=== PATIENT | female | born 1965 | race Caucasian/White ===

== ENCOUNTER 2017-11-16 15:01 | Emergency (ER) | payer MEDICARE, MEDICAID ==
--- NOTE | 2017-11-16 16:13 | EDM.PDOC ---
ED HPI GENERAL MEDICAL PROBLEM - General Chief Complaint: Lower Extremity Injury/Pain Stated Complaint: bilateral knee pain Time Seen by Provider: 11/16/17 15:07 Source of Information: Reports: Patient, Long-Term Records, RN, RN Notes Reviewed History Limitations: Reports: No Limitations - History of Present Illness INITIAL COMMENTS - FREE TEXT/NARRATIVE: Patient is brought to the ED at [facility] after she sustained bilateral knee injuries from falling. Patient has a long standing history of falls. Patient's baseline she is able to ambulate without assistance. Over the past week, patient has been refusing to walk and will only use a wheelchair. [place] staff has to use a standing chair lift on the patient as she refuses to walk. No previous history of knee problems. No previous knee surgeries. Patient denies any back or neck pain. Bilateral Knee Pain Score (Numeric/FACES): 7 - Related Data Allergies Allergy/AdvReac Type Severity Reaction Status Date / Time carbamazepine [From Tegretol] Allergy Cannot Verified 11/16/17 16:10 Remember divalproex sodium Allergy Cannot Verified 11/16/17 16:10 [From Depakote] Remember ethinyl estradiol Allergy Cannot Verified 11/16/17 16:10 [From Demulen (28)] Remember ethynodiol Allergy Cannot Verified 11/16/17 16:10 [From Demulen (28)] Remember Fish Containing Products Allergy Cannot Verified 11/16/17 16:10 Remember haloperidol [From Haldol] Allergy Cannot Verified 11/16/17 16:10 Remember latex Allergy Cannot Verified 11/16/17 16:10 Remember Penicillins Allergy Cannot Verified 11/16/17 16:10 Remember thiothixene [From Navane] Allergy Cannot Verified 11/16/17 16:10 Remember levora Allergy Cannot Uncoded 11/16/17 16:10 Remember Home Meds: Home Meds Acetaminophen [Tylenol] 650 mg PO Q4H PRN 11/16/17 [History] Bisacodyl [Dulcolax] 5 mg PO ASDIRECTED PRN 11/16/17 [History] Cholecalciferol (Vitamin D3) [Vitamin D3] 400 unit PO DAILY 11/16/17 [History] Dextran 70/Hypromellose [Artificial Tears] 15 ml OP TID 11/16/17 [History] Docusate Sodium [Colace] 200 mg PO DAILY 11/16/17 [History] Furosemide [Lasix] 40 mg PO BID 11/16/17 [History] Glycopyrrolate [Robinul] 1 mg PO TID 11/16/17 [History] LORazepam [Ativan] 0.5 mg PO QID 11/16/17 [History] Lactulose 30 ml PO DAILY 11/16/17 [History] Linaclotide [Linzess] 145 mcg PO DAILY 11/16/17 [History] [place] Carbonate [[place] Carbonate ER] 900 mg PO DAILY 11/16/17 [History] Mag Hydrox/Al Hydrox/Simeth [Rulox] 30 ml PO QID PRN 11/16/17 [History] Magnesium Hydroxide [Milk of Magnesia] 30 ml PO DAILY 11/16/17 [History] Multivitamin [Multivitamins] 1 each PO DAILY 11/16/17 [History] Naproxen Sodium [Aleve] 220 mg PO BID 11/16/17 [History] [place]-3S/DHA/Epa/Fish Oil [[place]-3 Fish Oil 1,000 mg Sfgl] 1 each PO TID [History] Petrolatum,White/Lanolin [Vitamin A & D Ointment] 113 gm TP DAILY PRN 11/16/17 [ History] Polyethylene Glycol 3350 [MiraLAX] 17 gm PO DAILY 11/16/17 [History] Potassium Chloride 20 meq PO BID 11/16/17 [History] Warfarin Sodium [Coumadin] 10 mg PO DAILY 11/16/17 [History] Warfarin [Coumadin] 5 mg PO DAILY 11/16/17 [History] cloZAPine [Clozaril] 600 mg PO DAILY 11/16/17 [History] guaiFENesin/Dextromethorphan [Tussin Dm Cough Syrup] 10 ml PO Q4H PRN 11/16/17 [ History] Review of Systems - Review of Systems Review Of Systems: See Below Constitutional: Denies: Chills, Fever, Weakness Respiratory: Denies: Shortness of Breath, Cough Cardiovascular: Denies: Chest Pain, Palpitations Musculoskeletal: Reports: Joint Pain, Joint Swelling Skin: Reports: No Symptoms, Bruising (right knee) Neurological: Reports: No Symptoms. Denies: Numbness, Paresthesia, Tingling ED EXAM, GENERAL - Physical Exam Exam: See Below Exam Limited By: No Limitations General Appearance: Alert, No Apparent Distress Head: Atraumatic, Normocephalic Neck: Supple Respiratory/Chest: No Respiratory Distress, Lungs Clear, Normal Breath Sounds Cardiovascular: Normal Peripheral Pulses, Regular Rate, Rhythm Back Exam: Normal Inspection Extremities: Normal Capillary Refill, Pedal Edema (chronic), Joint Swelling ( right knee a little swollen when compared to the left), Limited Range of Motion (due to pain). No: Increased Warmth Neurological: Alert, Disoriented (baseline) Skin Exam: Warm, Dry, Intact, Normal Color Course - Vital Signs Last Recorded V/S: Last Vital Signs Temp 36.5 C 11/16/17 15:10 Pulse 93 11/16/17 15:10 Resp 18 11/16/17 15:10 BP 103/59 L 11/16/17 15:10 Pulse Ox 99 11/16/17 15:10 - Orders/Labs/Meds Orders: Active Orders 24 hr Category Date Time Status Knee 3V Lt [CR] Stat Exams 11/16/17 16:07 Taken Knee 3V Rt [CR] Stat Exams 11/16/17 16:07 Taken - Radiology Interpretation Free Text/Narrative:: Knee Right, 3V: Nondisplaced proximal right fibular neck fracture; degenerative changes; subluxation of patella; MRI would be helpful Knee Left, 3V: Extensive degenerative changes; no obvious new fracture See scanned reports in EMR Departure - Departure Time of Disposition: 18:57 Disposition: DC/Tfer to [facility] 03 Condition: Fair Clinical Impression: Closed fibular fracture Qualifiers: Encounter type: initial encounter Fibula location: proximal Fracture morphology : unspecified fracture morphology Laterality: right Qualified Code(s): S82.831A - Other fracture of upper and lower end of right fibula, initial encounter for closed fracture - Discharge Information *PRESCRIPTION DRUG MONITORING PROGRAM REVIEWED*: Not Applicable *COPY OF PRESCRIPTION DRUG MONITORING REPORT IN PATIENT AVEL: Not Applicable Instructions: Tibial and Fibular Fractures Referrals: Juany Parks DO [Physician] - Forms: ED Department Discharge Additional Instructions: 1. Stay well hydrated and rest 2. Weight baring as tolerated 3. No surgical intervention warrant 4. Follow up with PCP as symptoms warrant ED Communication - ED Communication Date/Time Date: 11/16/17 Time Called: 18:39 - Discussed Case With (1) Discussed Case With (1): Outpatient Provider (Dr. Yeyo Dykes, Ortho) - Problem List Review Problem List Initiated/Reviewed/Updated: Yes - My Orders Last 24 Hours: My Active Orders 11/16/17 16:07 Knee 3V Lt [CR] Stat Knee 3V Rt [CR] Stat - Assessment/Plan Last 24 Hours: My Active Orders 11/16/17 16:07 Knee 3V Lt [CR] Stat Knee 3V Rt [CR] Stat Assessment:: Nondisplaced proximal right fibular neck fracture Plan: Case discussed with Dr. Yeyo Dykes, Ortho. Recommend WBAT. No surgical intervention warranted. Follow up as needed.
== END 2017-11-16 19:11 ==
LOC: VM.ED 15:01
DX: S82.831A Other fracture of upper and lower end of right fibula, initial encounter for closed fracture (principal); Z79.899 Other long term (current) drug therapy; Z88.8 Allergy status to other drugs, medicaments and biological substances; Z91.040 Latex allergy status; Z88.0 Allergy status to penicillin; Z79.01 Long term (current) use of anticoagulants; W19.XXXA Unspecified fall, initial encounter; Z91.81 History of falling; Z99.3 Dependence on wheelchair
CPT/HCPCS: 73562-LT; 73562-RT; 99283

== ENCOUNTER 2017-12-23 15:36 | Emergency (ER) | payer MEDICARE, MEDICAID ==
--- NOTE | 2017-12-23 15:55 | EDM.PDOC ---
ED HPI GENERAL MEDICAL PROBLEM - General Chief Complaint: Cardiovascular Problem Stated Complaint: Tachy; BP issues Time Seen by Provider: 12/23/17 15:43 Source of Information: Reports: EMS Notes Reviewed, Penitentiary Records, RN, RN Notes Reviewed History Limitations: Reports: No Limitations - History of Present Illness INITIAL COMMENTS - FREE TEXT/NARRATIVE: Patient is brought to the ED at [facility] via EMS for concerns about blood pressure and heart rate. [place] state state they were unable to get a blood pressure and measured the patients heart rate in the 120's-140's. The chest pain or shortness of breath. No focal neurological problems. Patient recently had surgery for SBO. penitentiary staff state they were unable to auscultate bowel sounds. Patient does not have any abdominal complaints. Onset: Today - Related Data Allergies Allergy/AdvReac Type Severity Reaction Status Date / Time carbamazepine [From Tegretol] Allergy Cannot Verified 12/23/17 16:07 Remember divalproex sodium Allergy Cannot Verified 12/23/17 16:07 [From Depakote] Remember ethinyl estradiol Allergy Cannot Verified 12/23/17 16:07 [From Demulen (28)] Remember ethynodiol Allergy Cannot Verified 12/23/17 16:07 [From Demulen (28)] Remember Fish Containing Products Allergy Cannot Verified 12/23/17 16:07 Remember haloperidol [From Haldol] Allergy Cannot Verified 12/23/17 16:07 Remember latex Allergy Cannot Verified 12/23/17 16:07 Remember levonorgestrel Allergy Cannot Verified 12/23/17 16:07 Remember Penicillins Allergy Cannot Verified 12/23/17 16:07 Remember thiothixene [From Navane] Allergy Cannot Verified 12/23/17 16:07 Remember valproic acid Allergy Other Verified 12/07/17 23:01 Home Meds: Home Meds Acetaminophen [Tylenol] 650 mg PO Q4H PRN 11/16/17 [History] Bisacodyl [Dulcolax] 5 mg PO Q3D PRN 11/16/17 [History] Cholecalciferol (Vitamin D3) [Vitamin D3] 400 unit PO DAILY 11/16/17 [History] Dextran 70/Hypromellose [Artificial Tears] 1 drop EYEBOTH TID 11/16/17 [History] Docusate Sodium [Colace] 200 mg PO DAILY 11/16/17 [History] Furosemide [Lasix] 40 mg PO DAILY 11/16/17 [History] Glycopyrrolate [Robinul] 1 mg PO TID 11/16/17 [History] LORazepam [Ativan] 0.5 mg PO Q6H PRN 11/16/17 [History] Lactulose 30 ml PO DAILY 11/16/17 [History] Linaclotide [Linzess] 145 mcg PO DAILY 11/16/17 [History] [place] Carbonate [[place] Carbonate ER] 900 mg PO DAILY 11/16/17 [History] Mag Hydrox/Al Hydrox/Simeth [Rulox] 30 ml PO QID PRN 11/16/17 [History] Magnesium Hydroxide [Milk of Magnesia] 30 ml PO DAILY PRN 11/16/17 [History] Multivitamin [Multivitamins] 1 cap PO DAILY 11/16/17 [History] Naproxen Sodium [Aleve] 220 mg PO BID PRN 11/16/17 [History] [place]-3S/DHA/Epa/Fish Oil [[place]-3 Fish Oil 1,000 mg Sfgl] 1 cap PO TID [History] Petrolatum,White/Lanolin [Vitamin A & D Ointment] 1 applic TOP DAILY PRN [History] Polyethylene Glycol 3350 [MiraLAX] 17 gm PO DAILY 11/16/17 [History] Potassium Chloride 20 meq PO BID 11/16/17 [History] Warfarin Sodium [Coumadin] 10 mg PO SUTUTHSA@1700 11/16/17 [History] Warfarin [Coumadin] 5 mg PO MOWEFR@1700 11/16/17 [History] cloZAPine [Clozaril] 600 mg PO DAILY 11/16/17 [History] guaiFENesin/Dextromethorphan [Tussin Dm Cough Syrup] 10 ml PO Q4H PRN 11/16/17 [ History] Acetaminophen 650 mg PO TID 12/08/17 [History] Bisacodyl [Biscolax] 1 supp RECTAL ASDIRECTED PRN 12/08/17 [History] Dimeth/Gly/Oat/Petrolat/Water [Lubriderm Skin Nourishing Lotion] 1 applic TOP BID 12/08/17 [History] Ondansetron HCl [Zofran] 4 mg PO Q4H PRN 12/08/17 [History] Enoxaparin Sodium 80 mg SQ BID 12/23/17 [History] Famotidine 20 mg PO BID 12/23/17 [History] Past Medical History Cardiovascular History: Reports: High Cholesterol Respiratory History: Reports: Asthma, PE Gastrointestinal History: Reports: Chronic Constipation, GERD Musculoskeletal History: Reports: Other (See Below) Other Musculoskeletal History: Generalized Muscle Weakness, Fracture of Shaft of Right Fibula Psychiatric History: Reports: Anxiety, Bipolar, Depression, OCD, Schizophrenia, Other (See Below) Other Psychiatric History: Personality Disorder, Dysthmic Disorder Dermatologic History: Reports: Seborrheic Dermatitis, Other (See Below) Other Dermatologic History: Melanin Hyperpigmentation, Melanocytic Nevi Social & Family History - Caffeine Use Caffeine Use: Reports: None ED ROS GENERAL - Review of Systems Review Of Systems: See Below Constitutional: Denies: Fever, Chills Respiratory: Denies: Shortness of Breath, Cough Cardiovascular: Reports: Blood Pressure Problem. Denies: Chest Pain, Palpitations GI/Abdominal: Denies: Abdominal Pain, Nausea, Vomiting Skin: Reports: No Symptoms Neurological: Reports: No Symptoms ED EXAM, GENERAL - Physical Exam Exam: See Below Exam Limited By: No Limitations General Appearance: Alert, No Apparent Distress Respiratory/Chest: No Respiratory Distress, Lungs Clear, Normal Breath Sounds Cardiovascular: Normal Peripheral Pulses, Tachycardia Peripheral Pulses: 2+: Radial (L), Radial (R) GI/Abdominal: Soft, Tender (around incision site), Abnormal Bowel Sounds ( Hypoactive) Neurological: Alert Skin Exam: Warm, Dry, Intact, Normal Color EKG INTERPRETATION EKG Date: 12/23/17 Time: 15:45 Rhythm: NSR Rate (Beats/Min): 114 [place]: Normal P-Wave: Present QRS: Normal ST-T: Normal QT: Normal MS/PQ Interval: 0.17 Comparison: No Change EKG Interpretation Comments: 1. Sinus Tachycardia 2. Possible LAE 3. Nonspecific ST & T wave abnormality Course - Vital Signs Last Recorded V/S: Last Vital Signs Temp 37.1 C 12/23/17 15:36 Pulse 110 H 12/23/17 16:35 Resp 18 12/23/17 16:35 BP 122/65 12/23/17 16:35 Pulse Ox 97 12/23/17 16:35 - Orders/Labs/Meds Orders: Active Orders 24 hr Category Date Time Status EKG 12 Lead [EKG Documentation Completion] [RC] STAT Care 12/23/17 15:44 Active Insert Graf Catheter [Insert Urinary Catheter] [OM.PC] Care 12/23/17 17:40 Ordered Stat Urinary Catheter Assessment [RC] ASDIRECTED Care 12/23/17 17:41 Ordered Abdomen Pelvis w Cont [CT] Stat Exams 12/23/17 15:58 Taken Sodium Chloride 0.9% [Saline Flush] Med 12/23/17 15:56 Active 10 ml FLUSH ASDIRECTED PRN Peripheral IV Insertion Adult [OM.PC] Routine Oth 12/23/17 15:56 Ordered Medication Orders Sodium Chloride (Saline Flush) 10 ml FLUSH ASDIRECTED PRN PRN Reason: Keep Vein Open Labs: Laboratory Tests 12/23/17 Range/Units 16:06 Sodium 138 (136-145) mmol/L Potassium 3.5 (3.5-5.1) mmol/L Chloride 103 (98-107) mmol/L Carbon Dioxide 30 (21-32) mmol/L Anion Gap 8.5 L (10-20) mmol/L BUN 8 (7-18) mg/dL Creatinine 0.8 (0.55-1.02) mg/dL Est Cr Clr Drug Dosing TNP Estimated GFR (MDRD) > 60 Glucose 127 H (74-106) mg/dL Calcium 10.3 H (8.5-10.1) mg/dL Magnesium 1.8 (1.8-2.4) mg/dL Meds: Medications Generic Name Dose Route Start Last Admin Trade Name Freq PRN Reason Stop Dose Admin Sodium Chloride 10 ml 12/23/17 15:56 Saline Flush FLUSH ASDIRECTED PRN Keep Vein Open Discontinued Medications Generic Name Dose Route Start Last Admin Trade Name Freq PRN Reason Stop Dose Admin Sodium Chloride 1,000 mls @ 999 mls/hr 12/23/17 15:57 12/23/17 16:29 Normal Saline IV 12/23/17 16:57 999 mls/hr ONETIME ONE Administration Iopamidol 100 ml 12/23/17 16:52 12/23/17 17:08 Isovue-300 (61%) IVPUSH 12/23/17 16:53 100 ml ONETIME ONE Administration Metoclopramide HCl 10 mg 12/23/17 15:57 12/23/17 16:33 Reglan IVPUSH 12/23/17 15:58 10 mg ONETIME ONE Administration Ondansetron HCl 4 mg 12/23/17 16:21 12/23/17 16:31 Zofran IVPUSH 12/23/17 16:22 4 mg ONETIME ONE Administration - Radiology Interpretation Free Text/Narrative:: CT Abd/Pelvis: Markedly distended urinary bladder, consistent with urinary retention; changes in the bowel most consistent with postoperative ileus. No evidence of obstruction or perforation at this time See scanned report in EMR CT Results Date: 12/23/17 CT Results Time: 17:25 Departure - Departure Time of Disposition: 17:48 Disposition: DC/Tfer to [place] [address] Reason for Transfer *Q: Other (no transfer indicated) Condition: Good Clinical Impression: Urinary retention Instructions: Acute Urinary Retention, Female Referrals: Juany Parks, [Primary Care Provider] - Forms: ED Department Discharge Additional Instructions: 1. Stay well hydrated and rest 2. No changes with any medications 3. No new orders 4. See Dr. Parks as symptoms warrant ED Communication - ED Communication Date/Time Date: 12/23/17 Time Called: 17:38 - Discussed Case With (1) Discussed Case With (1): Outpatient Provider Person/s Notified (1): Juany Parks - Conversation Summary Summary Comment: Discussed case with Dr. Parks. Orders updated. - Problem List Review Problem List Initiated/Reviewed/Updated: Yes - My Orders Last 24 Hours: My Active Orders 12/23/17 15:44 EKG 12 Lead [EKG Documentation Completion] [RC] STAT 12/23/17 15:56 Sodium Chloride 0.9% [Saline Flush] 10 ml FLUSH ASDIRECTED PRN Peripheral IV Insertion Adult [OM.PC] Routine 12/23/17 15:58 Abdomen Pelvis w Cont [CT] Stat 12/23/17 17:40 Insert Graf Catheter [Insert Urinary Catheter] [OM.PC] Stat 12/23/17 17:41 Urinary Catheter Assessment [RC] ASDIRECTED - Assessment/Plan Last 24 Hours: My Active Orders 12/23/17 15:44 EKG 12 Lead [EKG Documentation Completion] [RC] STAT 12/23/17 15:56 Sodium Chloride 0.9% [Saline Flush] 10 ml FLUSH ASDIRECTED PRN Peripheral IV Insertion Adult [OM.PC] Routine 12/23/17 15:58 Abdomen Pelvis w Cont [CT] Stat 12/23/17 17:40 Insert Graf Catheter [Insert Urinary Catheter] [OM.PC] Stat 12/23/17 17:41 Urinary Catheter Assessment [RC] ASDIRECTED Assessment:: Urinary Retention Plan: Case discussed with Dr. Parks. Will straight cath patient for urinary retention. This is an isolated episode so catheter will not remain in place. Patient will be sent back to [place] without any changes to medications or treatments.
[2017-12-23] MEDS ORDERED: Sodium Chloride 0.9% 10 ML Syringe FLUSH PRN (15:56)
[2017-12-23] MEDS ORDERED: Metoclopramide 10 MG/2 ML SDV IVPUSH ONE (15:57)
[2017-12-23] MEDS ORDERED: Sodium Chloride 0.9% 1,000 ML IV ONE (15:57)
[2017-12-23] MEDS ORDERED: Ondansetron 4 MG/2 ML SDV IVPUSH ONE (16:21)
[2017-12-23 16:28] LABS: ANION GAP 8.5 mmol/L (10-20); CHLORIDE,CL 103 mmol/L (98-107); SODIUM,NA 138 mmol/L (136-145)
[2017-12-23] MEDS ORDERED: Iopamidol 612 MG/ML 100 ML Bottle IVPUSH ONE (16:52)
== END 2017-12-23 18:48 ==
LOC: VM.ED 15:36
DX: R33.9 Retention of urine, unspecified (principal); Z88.8 Allergy status to other drugs, medicaments and biological substances; Z79.899 Other long term (current) drug therapy; Z91.040 Latex allergy status
CPT/HCPCS: 36415; 74177; 80048; 81002; 83735; 93005; 96361; 96374; 96375; 99285; J2405; J2765; J7030; Q9967

== ENCOUNTER 2018-11-11 07:53 | Emergency (ER) | payer MEDICARE, MEDICAID ==
[2018-11-11] MEDS ORDERED: Acetaminophen 650 MG Supp RECTAL ONE (08:32)
[2018-11-11] MEDS ORDERED: cefTRIAXone 1 GM Vial IVPUSH ONE (08:34)
--- NOTE | 2018-11-11 08:40 | EDM.PDOC ---
ED HPI GENERAL MEDICAL PROBLEM - General Chief Complaint: Abdominal Pain Stated Complaint: BOWEL OBSTRUCTION Time Seen by Provider: 11/11/18 08:20 Source of Information: Reports: Patient, EMS, Long Term Records History Limitations: Reports: No Limitations - History of Present Illness INITIAL COMMENTS - FREE TEXT/NARRATIVE: 53-year-old care home patient brought in the days secondary to nausea and abdominal pain and fever. Patient is alert and oriented to name and location follow some commands. States she is sick her stomach and her belly hurts as a generalized location of pain to the lower abdomen. Patient has a history of small bowel obstructions in the past. Location: Reports: Abdomen Quality: Reports: Other (Patient cannot quantify type of pain or amount of pain) Associated Symptoms: Reports: Nausea/Vomiting, Other (Cannot remember last bowel movement) Abdomen Pain Score (Numeric/FACES): 10 - Related Data Allergies Allergy/AdvReac Type Severity Reaction Status Date / Time carbamazepine [From Tegretol] Allergy Cannot Verified 11/11/18 09:14 Remember divalproex sodium Allergy Cannot Verified 11/11/18 09:14 [From Depakote] Remember ethinyl estradiol Allergy Cannot Verified 11/11/18 09:14 [From Demulen (28)] Remember ethynodiol Allergy Cannot Verified 11/11/18 09:14 [From Demulen (28)] Remember Fish Containing Products Allergy Cannot Verified 11/11/18 09:14 Remember haloperidol [From Haldol] Allergy Cannot Verified 11/11/18 09:14 Remember latex Allergy Cannot Verified 11/11/18 09:14 Remember levonorgestrel Allergy Cannot Verified 11/11/18 09:14 Remember Penicillins Allergy Cannot Verified 11/11/18 09:14 Remember thiothixene [From Navane] Allergy Cannot Verified 11/11/18 09:14 Remember valproic acid Allergy Other Verified 11/11/18 09:14 Home Meds: Home Meds Acetaminophen [Tylenol] 650 mg PO Q4H PRN 11/16/17 [History] Bisacodyl [Dulcolax] 5 mg PO Q3D PRN 11/16/17 [History] Cholecalciferol (Vitamin D3) [Vitamin D3] 400 unit PO DAILY 11/16/17 [History] Dextran 70/Hypromellose [Artificial Tears] 1 drop EYEBOTH TID PRN 11/16/17 [ History] Furosemide [Lasix] 40 mg PO DAILY 11/16/17 [History] LORazepam [Ativan] 0.5 mg PO QID 11/16/17 [History] [place] Carbonate [[place] Carbonate ER] 900 mg PO DAILY 11/16/17 [History] Mag Hydrox/Al Hydrox/Simeth [Rulox] 30 ml PO QID PRN 11/16/17 [History] Magnesium Hydroxide [Milk of Magnesia] 30 ml PO DAILY PRN 11/16/17 [History] Multivitamin [Multivitamins] 1 cap PO DAILY 11/16/17 [History] [place]-3S/DHA/Epa/Fish Oil [[place]-3 Fish Oil 1,000 mg Sfgl] 1 cap PO TID [History] Petrolatum,White/Lanolin [Vitamin A & D Ointment] 1 applic TOP DAILY PRN [History] Polyethylene Glycol 3350 [MiraLAX] 17 gm PO DAILY 11/16/17 [History] Potassium Chloride 20 meq PO DAILY 11/16/17 [History] Warfarin Sodium [Coumadin] 10 mg PO SUTUWETHFRSA 11/16/17 [History] Warfarin [Coumadin] 7.5 mg PO MO 11/16/17 [History] cloZAPine [Clozaril] 600 mg PO DAILY 11/16/17 [History] guaiFENesin/Dextromethorphan [Tussin Dm Cough Syrup] 10 ml PO Q4H PRN 11/16/17 [ History] Bisacodyl [Biscolax] 1 supp RECTAL ASDIRECTED PRN 12/08/17 [History] Dimeth/Gly/Oat/Petrolat/Water [Lubriderm Skin Nourishing Lotion] 1 applic TOP BID 12/08/17 [History] Ondansetron HCl [Zofran] 4 mg PO Q4H PRN 12/08/17 [History] Famotidine 20 mg PO BID 12/23/17 [History] Acetaminophen [Tylenol] 650 mg PO TID 11/11/18 [History] Levothyroxine [Synthroid] 50 mcg PO ACBREAKFAST 11/11/18 [History] Lurasidone HCl [Latuda] 80 mg PO DAILY 11/11/18 [History] Past Medical History Cardiovascular History: Reports: High Cholesterol Respiratory History: Reports: Asthma, PE Gastrointestinal History: Reports: Chronic Constipation, GERD Musculoskeletal History: Reports: Other (See Below) Other Musculoskeletal History: Generalized Muscle Weakness, Fracture of Shaft of Right Fibula Psychiatric History: Reports: Anxiety, Bipolar, Depression, OCD, Schizophrenia, Other (See Below) Other Psychiatric History: Personality Disorder, Dysthmic Disorder Dermatologic History: Reports: Seborrheic Dermatitis, Other (See Below) Other Dermatologic History: Melanin Hyperpigmentation, Melanocytic Nevi Social & Family History - Caffeine Use Caffeine Use: Reports: None ED ROS GENERAL - Review of Systems Review Of Systems: Unable To Obtain (Limited history of present illness from patient) Constitutional: Reports: Fever, Chills, Other (Patient denies fever chills. Positive for documented fever all care home chart) HEENT: Reports: No Symptoms Respiratory: Denies: Shortness of Breath, Cough Cardiovascular: Denies: Chest Pain, Blood Pressure Problem GI/Abdominal: Reports: Abdominal Pain, Nausea, Vomiting : Reports: No Symptoms Musculoskeletal: Reports: No Symptoms Skin: Reports: No Symptoms Neurological: Reports: Other (Patient at baseline is pleasantly confused) Psychiatric: Reports: No Symptoms Hematologic/Lymphatic: Reports: No Symptoms Immunologic: Reports: No Symptoms ED EXAM, GI/ABD - Physical Exam Exam: See Below Exam Limited By: Other General Appearance: Alert, No Apparent Distress, Other (Patient is verbal answer some questions such as name and location but does not know date or time) Eyes: Bilateral: Normal Appearance, EOMI (Pupils equal round reactive light accommodation) Ears: Normal External Exam, Normal Canal Nose: Normal Inspection, Normal Mucosa Throat/Mouth: Normal Inspection, Normal Lips, Normal Teeth, Normal Gums, Normal Oropharynx, Normal Voice, No Airway Compromise, Other (Moist mucous membranes) Head: Atraumatic, Other Neck: Normal Inspection, Supple, Non-Tender, Full Range of Motion, Other (No nuchal rigidity noted) Respiratory/Chest: No Respiratory Distress, Lungs Clear, Normal Breath Sounds, No Accessory Muscle Use, Chest Non-Tender Cardiovascular: Normal Peripheral Pulses, Regular Rate, Rhythm (Noted tachycardia 110 bilateral +1 pedal edema), No JVD. No: No Edema GI/Abdominal Exam: Soft, No Organomegaly (Abdomen has mild tenderness to palpation diffusely across lower quadrants no noted grimace the patient states it hurts cannot quantify pain not able to appreciate any bowel sounds secondary to patient's obesity cannot disdain if it is distended abdomen there are no peritoneal signs). No: Normal Bowel Sounds, Non-Tender, Guarding, Rebound, Tender Back Exam: Full Range of Motion Extremities: Normal Inspection, Normal Range of Motion, Non-Tender. No: No Pedal Edema Neurological: Alert, CN II-XII Intact (Cranial nerves II through XII are grossly intact) Psychiatric: Normal Affect, Normal Mood Skin Exam: Warm, Dry, Intact, Normal Color Course - Vital Signs Text/Narrative:: Secondary to fever and tachycardia subsequent protocol will be started 1 g Rocephin IV 650 Tylenol rectal 8 mg Zofran flatplate and upright abdominal series and blood work Chest x-ray no acute findings CT abdomen and pelvis reveals a 6 mm obstructing stone within the proximal third of the left ureter resulting in mild left hydronephrosis Spoke with Dr. MARTE at [facility] in the ER he is willing to accept transfer for further workup and diagnosis and treatment he is okay with treatment that has been done here so far patient is stable for transfer Last Recorded V/S: Last Vital Signs Temp 37.4 C 11/11/18 10:15 Pulse 99 11/11/18 10:15 Resp 18 11/11/18 10:15 BP 112/91 H 11/11/18 10:15 Pulse Ox 97 11/11/18 10:15 - Orders/Labs/Meds Orders: Active Orders 24 hr Category Date Time Status EKG Documentation Completion [RC] STAT Care 11/11/18 08:32 Active CULTURE BLOOD [BC] Stat Lab 11/11/18 08:35 Received CULTURE BLOOD [BC] Stat Lab 11/11/18 08:48 Received Sodium Chloride 0.9% [Normal Saline] 1,000 ml Med 11/11/18 09:00 Active IV ASDIRECTED Blood Culture x2 Reflex Set [OM.PC] Stat Oth 11/11/18 08:32 Ordered Medication Orders Sodium Chloride (Normal Saline) 1,000 mls @ 100 mls/hr IV ASDIRECTED MELISSA Last Admin: 11/11/18 08:35 Dose: 100 mls/hr Labs: Laboratory Tests 11/11/18 11/11/18 11/11/18 Range/Units 08:48 08:48 08:48 WBC 8.9 (4.0-10.0) x10^3/uL RBC 4.80 (4.00-5.50) x10^6/uL Hgb 13.5 D (12.0-16.0) g/dL Hct 41.5 (33.0-47.0) % MCV 86.5 (78.0-93.0) fL MCH 28.1 (26.0-32.0) pg MCHC 32.5 (32.0-36.0) g/dL RDW Coeff of Alan 14.5 (10.0-15.0) % Plt Count 172 D (130-400) x10^3/uL Neut % (Auto) 94.3 H (50.0-80.0) % Lymph % (Auto) 4.0 L (25.0-50.0) % Rolette % (Auto) 1.5 L (2.0-11.0) % Eos % (Auto) 0.1 (0.0-4.0) % Baso % (Auto) 0.1 L (0.2-1.2) % Sodium 140 (136-145) mmol/L Potassium 3.5 (3.5-5.1) mmol/L Chloride 102 (98-107) mmol/L Carbon Dioxide 27 (21-32) mmol/L Anion Gap 14.5 (10-20) mmol/L BUN 19 H (7-18) mg/dL Creatinine 1.6 H (0.55-1.02) mg/dL Est Cr Clr Drug Dosing TNP Estimated GFR (MDRD) 34 Glucose 108 H (74-106) mg/dL Lactic Acid 3.4 H* (0.4-2.0) mmol/L Calcium 9.5 (8.5-10.1) mg/dL Urine Color (YELLOW) Urine Appearance (CLEAR) Urine pH (5.0-8.0) Ur Specific Trail Urine Protein (NEGATIVE) mg/dL Urine Glucose (UA) (NEGATIVE) mg/dL Urine Ketones (NEGATIVE) mg/dL Urine Occult Blood (NEGATIVE) Urine Nitrite (NEGATIVE) Urine Bilirubin (NEGATIVE) Urine Urobilinogen (0.2) EU/dL Ur Leukocyte Esterase (NEGATIVE) Urine RBC (NOT SEEN) /HPF Urine WBC (NOT SEEN) /HPF Ur Renal Epithelial Cell (NEGATIVE) /HPF Amorphous Sediment Urine Bacteria (NEGATIVE) /HPF Granular Casts (NEGATIVE) /HPF Urine Mucus (NEGATIVE) /LPF 11/11/18 Range/Units 08:55 WBC (4.0-10.0) x10^3/uL RBC (4.00-5.50) x10^6/uL Hgb (12.0-16.0) g/dL Hct (33.0-47.0) % MCV (78.0-93.0) fL MCH (26.0-32.0) pg MCHC (32.0-36.0) g/dL RDW Coeff of Alan (10.0-15.0) % Plt Count (130-400) x10^3/uL Neut % (Auto) (50.0-80.0) % Lymph % (Auto) (25.0-50.0) % Rolette % (Auto) (2.0-11.0) % Eos % (Auto) (0.0-4.0) % Baso % (Auto) (0.2-1.2) % Sodium (136-145) mmol/L Potassium (3.5-5.1) mmol/L Chloride (98-107) mmol/L Carbon Dioxide (21-32) mmol/L Anion Gap (10-20) mmol/L BUN (7-18) mg/dL Creatinine (0.55-1.02) mg/dL Est Cr Clr Drug Dosing Estimated GFR (MDRD) Glucose (74-106) mg/dL Lactic Acid (0.4-2.0) mmol/L Calcium (8.5-10.1) mg/dL Urine Color Dark yellow H (YELLOW) Urine Appearance Turbid H (CLEAR) Urine pH >=9.0 H (5.0-8.0) Ur Specific Trail 1.015 Urine Protein 30 H (NEGATIVE) mg/dL Urine Glucose (UA) Negative (NEGATIVE) mg/dL Urine Ketones Negative (NEGATIVE) mg/dL Urine Occult Blood Moderate H (NEGATIVE) Urine Nitrite Negative (NEGATIVE) Urine Bilirubin Negative (NEGATIVE) Urine Urobilinogen 0.2 (0.2) EU/dL Ur Leukocyte Esterase Moderate H (NEGATIVE) Urine RBC 5-10 H (NOT SEEN) /HPF Urine WBC 10-20 H (NOT SEEN) /HPF Ur Renal Epithelial Cell Occasional H (NEGATIVE) /HPF Amorphous Sediment Many Urine Bacteria Many H (NEGATIVE) /HPF Granular Casts Few H (NEGATIVE) /HPF Urine Mucus Few H (NEGATIVE) /LPF Meds: Medications Generic Name Dose Route Start Last Admin Trade Name Danilo PRN Reason Stop Dose Admin Sodium Chloride 1,000 mls @ 100 mls/hr 11/11/18 09:00 11/11/18 08:35 Normal Saline IV 100 mls/hr ASDIRECTED MELISSA Administration Discontinued Medications Generic Name Dose Route Start Last Admin Trade Name Danilo PRN Reason Stop Dose Admin Acetaminophen 650 mg 11/11/18 08:32 11/11/18 08:50 Tylenol RECTAL 11/11/18 08:33 650 mg NOW ONE Administration Ceftriaxone Sodium 1 gm 11/11/18 08:34 11/11/18 08:50 Rocephin IVPUSH 11/11/18 08:35 1 gm STAT ONE Administration Ondansetron HCl 8 mg/ Sodium 104 mls @ 400 mls/hr 11/11/18 08:43 11/11/18 08: 45 Chloride IV 11/11/18 08:58 400 mls/hr ONETIME ONE Administration Sodium Chloride 500 mls @ 100 mls/hr 11/11/18 08:45 Normal Saline IV ASDIRECTED MELISSA Iopamidol 100 ml 11/11/18 09:28 11/11/18 10:05 Isovue-300 (61%) IVPUSH 11/11/18 09:29 100 ml ONETIME ONE Administration Departure - Departure Time of Disposition: 11:20 Disposition: DC/Tfer to Acute Hospital 02 Condition: Good Clinical Impression: Abdominal pain, Sepsis, Renal calculus, left, Hydronephrosis due to obstruction of ureter - Discharge Information *PRESCRIPTION DRUG MONITORING PROGRAM REVIEWED*: No *COPY OF PRESCRIPTION DRUG MONITORING REPORT IN PATIENT AVEL: No Referrals: Juany Parks DO [Primary Care Provider] - Forms: ED Department Discharge - Problem List & Annotations (1) Abdominal pain SNOMED Code(s): 18046400 Code(s): R10.9 - UNSPECIFIED ABDOMINAL PAIN Status: Acute Current Visit: Yes (2) Hydronephrosis due to obstruction of ureter SNOMED Code(s): 517992040 Code(s): N13.2 - HYDRONEPHROSIS WITH RENAL AND URETERAL CALCULOUS OBSTRUCTION Status: Acute Current Visit: Yes (3) Renal calculus, left SNOMED Code(s): 11260258 Code(s): N20.0 - CALCULUS OF KIDNEY Status: Acute Current Visit: Yes (4) Sepsis SNOMED Code(s): 73059954 Code(s): A41.9 - SEPSIS, UNSPECIFIED ORGANISM Status: Acute Current Visit : Yes - My Orders Last 24 Hours: My Active Orders 11/11/18 08:32 EKG Documentation Completion [RC] STAT Blood Culture x2 Reflex Set [OM.PC] Stat 11/11/18 08:35 CULTURE BLOOD [BC] Stat 11/11/18 08:48 CULTURE BLOOD [BC] Stat 11/11/18 09:00 Sodium Chloride 0.9% [Normal Saline] 1,000 ml IV ASDIRECTED - Assessment/Plan Last 24 Hours: My Active Orders 11/11/18 08:32 EKG Documentation Completion [RC] STAT Blood Culture x2 Reflex Set [OM.PC] Stat 11/11/18 08:35 CULTURE BLOOD [BC] Stat 11/11/18 08:48 CULTURE BLOOD [BC] Stat 11/11/18 09:00 Sodium Chloride 0.9% [Normal Saline] 1,000 ml IV ASDIRECTED
[2018-11-11] MEDS ORDERED: Ondansetron 8 MG in Sodium Chloride 0.9% 100 ML IV ONE (08:43)
[2018-11-11] MEDS ORDERED: Sodium Chloride 0.9% 500 ML IV SCH (08:45)
[2018-11-11] MEDS ORDERED: Sodium Chloride 0.9% 1,000 ML IV SCH (09:00)
[2018-11-11 09:17] LABS: ANION GAP 14.5 mmol/L (10-20); CHLORIDE,CL 102 mmol/L (98-107); SODIUM,NA 140 mmol/L (136-145)
[2018-11-11] MEDS ORDERED: Iopamidol 612 MG/ML 100 ML Bottle IVPUSH ONE (09:28)
--- NOTE | 2018-11-11 09:39 | CR ---
[id number] RAD/RAD Chest PA or AP 1V EXAM: RAD Chest PA or AP 1V INDICATION: FEVER. COMPARISON: None available. DISCUSSION: Cardiomediastinal silhouette is normal in size and contour. No infiltrate, effusion, pneumothorax, or edema. Low lung volumes associated vascular crowding. IMPRESSION: No acute cardiopulmonary abnormality. Rafi Gray DO 11/11/18 0937 Thank you for allowing us to participate in the care of your patient.
--- NOTE | 2018-11-11 10:38 | CT ---
[id number] CT/CT Abdomen Pelvis W IV EXAM: CT Abdomen Pelvis W IV CLINICAL DATA: SMALL BOWEL OBSTRUCTION, HISTORY OF NAUSEA, VOMITING, COMPARISON STUDY: December 23, 2017. FINDINGS: Dependent atelectasis at the lung bases. Small sliding-type hiatal hernia. Liver, spleen, gallbladder and adrenal glands are unremarkable. Fatty atrophy of the pancreas There is a 6 mm calcified stone within the proximal 3rd of the left ureter resulting in mild left hydronephrosis. There is surrounding perinephric fat stranding. No other stones are identified. There is a Graf catheter in place. No bowel obstruction or inflammation. Moderate amount of retained stool within the colon. Bilateral adnexal cysts. Multiple prominent mesenteric lymph nodes. These are nonspecific. No free fluid or pneumoperitoneum. Scattered changes of spondylosis the spine. No fracture or osseous lesion. IMPRESSION: 6 mm obstructing stone within the proximal 3rd of the left ureter resulting in mild left hydronephrosis. Rafi Gray DO 11/11/18 1036 Thank you for allowing us to participate in the care of your patient.
== END 2018-11-11 12:10 | disposition short-term general hospital (02) ==
LOC: VM.ED 07:53
DX: A41.9 Sepsis, unspecified organism (principal); N13.2 Hydronephrosis with renal and ureteral calculous obstruction; E78.00 Pure hypercholesterolemia, unspecified; K21.9 Gastro-esophageal reflux disease without esophagitis; J45.909 Unspecified asthma, uncomplicated; F41.9 Anxiety disorder, unspecified; F32.9 Major depressive disorder, single episode, unspecified; F20.9 Schizophrenia, unspecified; Z88.8 Allergy status to other drugs, medicaments and biological substances; Z91.013 Allergy to seafood; Z91.040 Latex allergy status; Z88.0 Allergy status to penicillin; Z79.899 Other long term (current) drug therapy; Z79.01 Long term (current) use of anticoagulants
CPT/HCPCS: 36415; 51702; 71045; 74177; 80048; 81001; 83605; 85025; 87040; 87077; 87186; 93005; 96361; 96374; 96375; 99284; 99285; A9270; J0696; J2405; J7030; J7050; Q9967

== ENCOUNTER 2019-06-21 18:33 | Inpatient (IN) | payer MEDICARE, MEDICAID ==
[2019-06-21] MEDS ORDERED: Sodium Chloride 0.9% 1,000 ML IV ONE (18:40)
[2019-06-21] MEDS ORDERED: Metoclopramide 10 MG/2 ML SDV IVPUSH ONE (18:40)
--- NOTE | 2019-06-21 18:47 | EDM.PDOC ---
ED HPI GENERAL MEDICAL PROBLEM - General Chief Complaint: Gastrointestinal Problem Time Seen by Provider: 06/21/19 18:35 Source of Information: Reports: Patient, EMS History Limitations: Reports: No Limitations - History of Present Illness INITIAL COMMENTS - FREE TEXT/NARRATIVE: Pt. has had several episodes of diarrhea, vomiting, fever, and abdominal cramping today. She started getting sick today. She has had 1 loose stool and several episodes of vomiting. Staff at [facility] states that the patient had a fever and absent bowel sounds as well as significant discomfort to abdomen with palpation. On arrival of EMS, they report that the patient is no longer experiencing abdominal discomfort, nausea, or vomiting. She was afebrile on scene. Pt. denies any chest pain, shortness of breath, rashes, or headache. She states that she feels fine since vomiting and having the one loose stool. She is requesting a diet coke on arrival to ER. Onset: Today Location: Reports: Abdomen, Generalized - Related Data Allergies Allergy/AdvReac Type Severity Reaction Status Date / Time carbamazepine [From Tegretol] Allergy Cannot Verified 06/21/19 18:53 Remember divalproex sodium Allergy Cannot Verified 06/21/19 18:53 [From Depakote] Remember ethinyl estradiol Allergy Cannot Verified 06/21/19 18:53 [From Demulen (28)] Remember ethynodiol Allergy Cannot Verified 06/21/19 18:53 [From Demulen (28)] Remember Fish Containing Products Allergy Cannot Verified 06/21/19 18:53 Remember haloperidol [From Haldol] Allergy Cannot Verified 06/21/19 18:53 Remember latex Allergy Cannot Verified 06/21/19 18:53 Remember levonorgestrel Allergy Cannot Verified 06/21/19 18:53 Remember Penicillins Allergy Cannot Verified 06/21/19 18:53 Remember thiothixene [From Navane] Allergy Cannot Verified 06/21/19 18:53 Remember valproic acid Allergy Other Verified 06/21/19 18:53 levora Allergy Other Uncoded 06/21/19 20:34 Home Meds: Home Meds Acetaminophen [Tylenol] 650 mg PO Q4H PRN 11/16/17 [History] Cholecalciferol (Vitamin D3) [Vitamin D3] 400 unit PO DAILY 11/16/17 [History] Dextran 70/Hypromellose [Artificial Tears] 1 drop EYEBOTH TID PRN 11/16/17 [ History] Furosemide [Lasix] 40 mg PO DAILY 11/16/17 [History] [place] Carbonate [[place] Carbonate ER] 900 mg PO DAILY 11/16/17 [History] Mag Hydrox/Aluminum Hyd/Simeth [Rulox] 30 ml PO QID PRN 11/16/17 [History] Magnesium Hydroxide [Milk of Magnesia] 30 ml PO DAILY PRN 11/16/17 [History] Multivitamin [Multivitamins] 1 cap PO DAILY 11/16/17 [History] [place]-3S/DHA/Epa/Fish Oil [[place]-3 Fish Oil 1,000 mg Sfgl] 1 cap PO TID [History] Potassium Chloride 20 meq PO DAILY 11/16/17 [History] Warfarin Sodium [Coumadin] 10 mg PO SUTUWETHFRSA 11/16/17 [History] Warfarin [Coumadin] 7.5 mg PO MO 11/16/17 [History] bisacodyL [Dulcolax] 5 mg PO Q3D PRN 11/16/17 [History] cloZAPine [Clozaril] 600 mg PO DAILY 11/16/17 [History] polyethylene glycoL 3350 [MiraLAX] 17 gm PO DAILY 11/16/17 [History] Bisacodyl [Biscolax] 1 supp RECTAL ASDIRECTED PRN 12/08/17 [History] Dimeth/Gly/Oat/Petrolat/Water [Lubriderm Skin Nourishing Lotion] 1 applic TOP BID 12/08/17 [History] Acetaminophen [Tylenol] 650 mg PO TID 11/11/18 [History] Levothyroxine [Synthroid] 75 mcg PO ACBREAKFAST 11/11/18 [History] Lurasidone HCl [Latuda] 120 mg PO DAILY 11/11/18 [History] [place]/Min Oil/Christine/Wool Alcoh [Eucerin Creme] 0 gm TOP BID 06/21/19 [History] LORazepam [Ativan] 0.5 mg PO QID 06/21/19 [History] Oxybutynin Chloride [Oxybutynin Chloride ER] 10 mg PO DAILY 06/21/19 [History] Sennosides/Docusate Sodium [Senna Plus 8.6-50 mg Tablet] 2 tab PO DAILY PRN [History] Vits A and D/White Pet/Lanolin [A and D Ointment] 1 applic TOP DAILY 06/21/19 [ History] Past Medical History Cardiovascular History: Reports: High Cholesterol Respiratory History: Reports: Asthma, PE Gastrointestinal History: Reports: Chronic Constipation, GERD Musculoskeletal History: Reports: Other (See Below) Other Musculoskeletal History: Generalized Muscle Weakness, Fracture of Shaft of Right Fibula Psychiatric History: Reports: Anxiety, Bipolar, Depression, OCD, Schizophrenia, Other (See Below) Other Psychiatric History: Personality Disorder, Dysthmic Disorder Dermatologic History: Reports: Seborrheic Dermatitis, Other (See Below) Other Dermatologic History: Melanin Hyperpigmentation, Melanocytic Nevi Social & Family History - Caffeine Use Caffeine Use: Reports: None ED ROS GENERAL - Review of Systems Review Of Systems: See Below Constitutional: Reports: No Symptoms HEENT: Reports: No Symptoms Respiratory: Reports: No Symptoms Cardiovascular: Reports: No Symptoms Endocrine: Reports: No Symptoms GI/Abdominal: Reports: Abdominal Pain, Diarrhea, Nausea, Vomiting : Reports: No Symptoms Musculoskeletal: Reports: No Symptoms Skin: Reports: No Symptoms Neurological: Reports: No Symptoms Psychiatric: Reports: No Symptoms Hematologic/Lymphatic: Reports: No Symptoms Immunologic: Reports: No Symptoms ED EXAM, GENERAL - Physical Exam Exam: See Below Exam Limited By: No Limitations General Appearance: Alert, WD/WN, No Apparent Distress Throat/Mouth: Normal Inspection, Normal Lips, Normal Teeth, Normal Gums, Normal Oropharynx, Normal Voice, No Airway Compromise Head: Atraumatic, Normocephalic Neck: Normal Inspection, Supple, Non-Tender, Full Range of Motion Respiratory/Chest: No Respiratory Distress, Lungs Clear, Normal Breath Sounds, No Accessory Muscle Use, Chest Non-Tender Cardiovascular: Normal Peripheral Pulses, Regular Rate, Rhythm, No Edema, No Gallop, No JVD, No Murmur, No Rub Peripheral Pulses: 4+: Radial (L) GI/Abdominal: Normal Bowel Sounds, Soft, Non-Tender, No Mass, Other (distended, obese, no obvious discomfort for palpation\) (Female) Exam: Deferred Rectal (Female) Exam: Deferred Back Exam: Normal Inspection, Full Range of Motion Extremities: Normal Inspection, Normal Range of Motion, Non-Tender, No Pedal Edema, Normal Capillary Refill Neurological: Alert, Oriented, CN II-XII Intact, Normal Cognition, Normal Gait, Normal Reflexes, No Motor/Sensory Deficits Psychiatric: Normal Affect, Normal Mood Skin Exam: Warm, Dry, Intact, Normal Color, No Rash Lymphatic: No Adenopathy Course - Vital Signs Last Recorded V/S: Last Vital Signs Temp 36.8 C 06/21/19 21:23 Pulse 93 06/21/19 21:23 Resp 18 06/21/19 21:23 BP 116/62 06/21/19 21:23 Pulse Ox 99 06/21/19 21:23 - Orders/Labs/Meds Orders: Active Orders 24 hr Category Date Time Status Abdomen Pelvis w Cont [CT] Stat Exams 06/21/19 19:51 Taken CULTURE BLOOD [BC] Stat Lab 06/21/19 18:58 Received CULTURE BLOOD [BC] Stat Lab 06/21/19 19:05 Received Blood Culture x2 Reflex Set [OM.PC] Stat Oth 06/21/19 18:39 Ordered Labs: Laboratory Tests 06/21/19 06/21/19 06/21/19 Range/Units 18:58 18:58 18:58 WBC 9.0 (4.0-10.0) x10^3/uL RBC 4.96 (4.00-5.50) x10^6/uL Hgb 13.5 (12.0-16.0) g/dL Hct 42.5 (33.0-47.0) % MCV 85.7 (78.0-93.0) fL MCH 27.2 (26.0-32.0) pg MCHC 31.8 L (32.0-36.0) g/dL RDW Coeff of Alan 15.1 H (10.0-15.0) % Plt Count 244 (130-400) x10^3/uL Neut % (Auto) 75.3 (50.0-80.0) % Lymph % (Auto) 12.8 L (25.0-50.0) % [place] % (Auto) 10.1 (2.0-11.0) % Eos % (Auto) 1.7 (0.0-4.0) % Baso % (Auto) 0.1 L (0.2-1.2) % PT 22.6 H (10.0-12.8) SEC INR 2.0 (2.0-3.5) Sodium (136-145) mmol/L Potassium (3.5-5.1) mmol/L Chloride (98-107) mmol/L Carbon Dioxide (21-32) mmol/L Anion Gap (10-20) mmol/L BUN (7-18) mg/dL Creatinine (0.55-1.02) mg/dL Est Cr Clr Drug Dosing Estimated GFR (MDRD) Glucose (74-106) mg/dL Lactic Acid 2.3 H* (0.4-2.0) mmol/L Calcium (8.5-10.1) mg/dL Corrected Calcium (8.5-10.1) mg/dL Phosphorus (2.6-4.7) mg/dL Magnesium (1.8-2.4) mg/dL Total Bilirubin (0.2-1.0) mg/dL AST (15-37) U/L ALT (14-59) U/L Alkaline Phosphatase (46-116) U/L C-Reactive Protein (<=0.9) mg/dL Total Protein (6.4-8.2) g/dL Albumin (3.4-5.0) g/dL Globulin Albumin/Globulin Ratio Amylase (25-115) U/L Lipase (73-393) U/L Urine Color (YELLOW) Urine Appearance (CLEAR) Urine pH (5.0-8.0) Ur Specific Ber[place]old Urine Protein (NEGATIVE) mg/dL Urine Glucose (UA) (NEGATIVE) mg/dL Urine Ketones (NEGATIVE) mg/dL Urine Occult Blood (NEGATIVE) Urine Nitrite (NEGATIVE) Urine Bilirubin (NEGATIVE) Urine Urobilinogen (0.2) EU/dL Ur Leukocyte Esterase (NEGATIVE) Urine RBC (NOT SEEN) /HPF Urine WBC (NOT SEEN) /HPF Ur Squamous Epith Cells (NEGATIVE) /HPF Urine Bacteria (NEGATIVE) /HPF Urine Mucus (NEGATIVE) /LPF 06/21/19 06/21/19 06/21/19 Range/Units 18:58 18:58 19:43 WBC (4.0-10.0) x10^3/uL RBC (4.00-5.50) x10^6/uL Hgb (12.0-16.0) g/dL Hct (33.0-47.0) % MCV (78.0-93.0) fL MCH (26.0-32.0) pg MCHC (32.0-36.0) g/dL RDW Coeff of Alan (10.0-15.0) % Plt Count (130-400) x10^3/uL Neut % (Auto) (50.0-80.0) % Lymph % (Auto) (25.0-50.0) % [place] % (Auto) (2.0-11.0) % Eos % (Auto) (0.0-4.0) % Baso % (Auto) (0.2-1.2) % PT (10.0-12.8) SEC INR (2.0-3.5) Sodium 139 (136-145) mmol/L Potassium 3.6 (3.5-5.1) mmol/L Chloride 101 (98-107) mmol/L Carbon Dioxide 24 (21-32) mmol/L Anion Gap 17.6 (10-20) mmol/L BUN 9 (7-18) mg/dL Creatinine 0.9 (0.55-1.02) mg/dL Est Cr Clr Drug Dosing TNP Estimated GFR (MDRD) > 60 Glucose 134 H (74-106) mg/dL Lactic Acid (0.4-2.0) mmol/L Calcium 8.7 (8.5-10.1) mg/dL Corrected Calcium 9.26 (8.5-10.1) mg/dL Phosphorus 3.4 (2.6-4.7) mg/dL Magnesium 2.0 (1.8-2.4) mg/dL Total Bilirubin 0.4 (0.2-1.0) mg/dL AST 18 (15-37) U/L ALT 30 (14-59) U/L Alkaline Phosphatase 150 H (46-116) U/L C-Reactive Protein 7.0 H (<=0.9) mg/dL Total Protein 7.0 (6.4-8.2) g/dL Albumin 3.3 L (3.4-5.0) g/dL Globulin 3.7 Albumin/Globulin Ratio 0.89 Amylase 21 L (25-115) U/L Lipase 90 (73-393) U/L Urine Color Light yellow (YELLOW) Urine Appearance Slightly cloudy H (CLEAR) Urine pH 6.0 (5.0-8.0) Ur Specific Berthold <=1.005 Urine Protein Negative (NEGATIVE) mg/dL Urine Glucose (UA) Negative (NEGATIVE) mg/dL Urine Ketones Negative (NEGATIVE) mg/dL Urine Occult Blood Trace-intact H (NEGATIVE) Urine Nitrite Positive H (NEGATIVE) Urine Bilirubin Negative (NEGATIVE) Urine Urobilinogen 0.2 (0.2) EU/dL Ur Leukocyte Esterase Negative (NEGATIVE) Urine RBC 5-10 H (NOT SEEN) /HPF Urine WBC 0-5 (NOT SEEN) /HPF Ur Squamous Epith Cells Few H (NEGATIVE) /HPF Urine Bacteria Moderate H (NEGATIVE) /HPF Urine Mucus Occasional H (NEGATIVE) /LPF Meds: Medications Discontinued Medications Generic Name Dose Route Start Last Admin Trade Name Terryq PRN Reason Stop Dose Admin Ceftriaxone Sodium 2 gm 06/21/19 19:50 06/21/19 19:57 Rocephin IVPUSH 06/21/19 19:51 2 gm STAT ONE Administration Sodium Chloride 1,000 mls @ 1,000 mls/hr 06/21/19 18:40 06/21/19 18:48 Normal Saline IV 06/21/19 19:39 1,000 mls/hr .BOLUS ONE Administration Iopamidol 100 ml 06/21/19 20:01 06/21/19 20:24 Isovue-300 (61%) IVPUSH 06/21/19 20:02 100 ml ONETIME ONE Administration Metoclopramide HCl 5 mg 06/21/19 18:40 06/21/19 18:48 Reglan IVPUSH 06/21/19 18:41 5 mg ONETIME ONE Administration - Radiology Interpretation Free Text/Narrative:: high grade small bowel obstruction, no obvious ischemia. Departure - Departure Time of Disposition: 21:42 Disposition: DC/Tfer to Acute Hospital 02 Clinical Impression: UTI (urinary tract infection), Small bowel obstruction - Discharge Information Sepsis Event Note - Focused Exam Vital Signs: Vital Signs Temp Temp Pulse Resp BP BP Pulse Ox 06/21/19 21:23 36.8 C 93 18 116/62 99 06/21/19 20:25 37.1 C 97 20 116/65 100 06/21/19 19:50 115/76 06/21/19 18:33 37.6 C 96 18 112/72 99 Date Exam was Performed: 06/21/19 Time Exam was Performed: 21:40 - Problem List Review Problem List Initiated/Reviewed/Updated: Yes - My Orders Last 24 Hours: My Active Orders 06/21/19 18:39 Blood Culture x2 Reflex Set [OM.PC] Stat 06/21/19 18:58 CULTURE BLOOD [BC] Stat 06/21/19 19:05 CULTURE BLOOD [BC] Stat 06/21/19 19:51 Abdomen Pelvis w Cont [CT] Stat - Assessment/Plan Admission H&P: Please use this note as an admission H&P Last 24 Hours: My Active Orders 06/21/19 18:39 Blood Culture x2 Reflex Set [OM.PC] Stat 06/21/19 18:58 CULTURE BLOOD [BC] Stat 06/21/19 19:05 CULTURE BLOOD [BC] Stat 06/21/19 19:51 Abdomen Pelvis w Cont [CT] Stat Plan: Pt. will be admitted acutely. She is a code 1. She was given rocephin 2 gm IV in ER for her uti. Urine was cultured. Will continue normal saline at 150ml/hr after the first liter. Pt. will be followed in the AM by Mikie Onofre. Repeat CBC, lactic acid, and chemistry in the AM. She will be kept NPO tonight. IV reglan for nausea/vomiting and to improve peristalsis. Discussed findings with correction staff as well as Brandon Henry , patient's brother/legal guardian.
[2019-06-21 19:45] LABS: ANION GAP 17.6 mmol/L (10-20); CHLORIDE,CL 101 mmol/L (98-107); SODIUM,NA 139 mmol/L (136-145)
[2019-06-21] MEDS ORDERED: cefTRIAXone 2 GM Vial IVPUSH ONE (19:50)
[2019-06-21] MEDS ORDERED: Iopamidol 612 MG/ML 100 ML Bottle IVPUSH ONE (20:01)
[2019-06-21] MEDS ORDERED: Bisacodyl 10 MG Supp RECTAL PRN (21:59)
[2019-06-21] MEDS ORDERED: Warfarin 5 MG Tab PO SCH (22:00)
[2019-06-21] MEDS: Metoclopramide 10 MG/2 ML SDV IVPUSH SCH (22:30)
[2019-06-21] MEDS: LORazepam 0.5 MG Tab PO SCH (22:38)
[2019-06-22] MEDS: Sodium Chloride 0.9% 1,000 ML IV SCH ×4 (00:30→20:42)
[2019-06-22] MEDS: Metoclopramide 10 MG/2 ML SDV IVPUSH SCH ×4 (04:48→18:40)
[2019-06-22] MEDS ORDERED: Non-Formulary Medication 1 Each (Lurasidone Hcl [Latuda] 120 MG) PO SCH (08:00)
[2019-06-22] MEDS ORDERED: LORazepam 0.5 MG Tab PO SCH (08:00)
[2019-06-22 08:16] LABS: CHLORIDE,CL 109 mmol/L (98-107); SODIUM,NA 143 mmol/L (136-145)
[2019-06-22] MEDS: Levothyroxine 75 MCG Tab PO SCH (09:02)
[2019-06-22] MEDS: Furosemide 40 MG Tab PO SCH (09:02)
[2019-06-22] MEDS: Multivitamins with Iron/Calcium/Folic Acid/Minerals Tab PO SCH (09:02)
[2019-06-22] MEDS: LORazepam 0.5 MG Tab PO SCH ×4 (09:02→19:49)
[2019-06-22] MEDS: Lithium Carbonate 450 MG Tab.ER PO SCH (09:10)
[2019-06-22] MEDS ORDERED: Ondansetron 4 MG/2 ML SDV IVPUSH PRN (09:58)
[2019-06-22] MEDS ORDERED: Metoclopramide 10 MG/2 ML SDV IVPUSH ONE (10:00)
[2019-06-22] MEDS ORDERED: CLOZAPINE 200 MG PO SCH (10:45)
--- NOTE | 2019-06-22 11:34 | CT ---
[id number] CT/CT Abdomen Pelvis W IV EXAM: ABDOMEN AND PELVIS CT WITH CONTRAST INDICATION: Abdominal pain and elevated lactic acid. COMPARISON: November 11, 2018. DISCUSSION: There is dilation of the small bowel to about 40 mm with transition point within the mid to distal small bowel in the right lower abdomen (image 102 series 2) consistent with small bowel obstruction. There is a mildly prominent stool volume throughout the colon. No pneumatosis, free air free fluid. Fatty infiltration of the liver. Diastases recti. The mesenteric nodes are mildly prominent in size and number, but have minimally changed relative to the previous examination. The appendix is not identified. No free air free fluid. Interval passage of a left ureteral calculus. The gallbladder, spleen, pancreas, adrenal glands, and kidneys are normal in appearance. The osseous structures are unremarkable. IMPRESSION: 1. Mid to distal small bowel obstruction. Oren White MD 06/22/19 1134 Thank you for allowing us to participate in the care of your patient.
[2019-06-22] MEDS: Acetaminophen 325 MG Tab PO PRN ×2 (13:14→19:57)
--- NOTE | 2019-06-22 13:24 | PN ---
Progress Note for KEITH ALVARADO Date: 06/22/2019 Room #: VM.201 CHIEF COMPLAINT: 1. Abdominal pain. 2. Nausea and vomiting. SUBJECTIVE: A 53-year-old female patient is from the [facility], was admitted to the acute care floor last evening for abdominal pain, nausea, vomiting, which started earlier that day. According to the assisted records, the patient had a slight fever and was not able to keep anything down. The patient does have a history of GI problems in the past. The patient was worked up in the ER and was not found to be septic. However, the CT scan of the abdomen and pelvis showed a high-grade small bowel obstruction. Therefore, the patient was admitted to acute care. The patient is somewhat of a poor historian given her psychiatric background. Upon interview, the patient states that she is "feeling fine." The patient states that she does feel queasy. The patient is having lower abdominal pain bilaterally. The patient's last bowel movement was yesterday morning at the assisted. The patient states that she does feel hungry. The patient states she currently does not feel nauseated. PHYSICAL EXAMINATION: General Presentation: The patient is alert. Patient is cooperative. The patient does not appear to be in any acute distress. Respiratory: Lungs are clear to auscultation. Cardiac: Regular rate and rhythm, no murmur. Abdomen: Bowel sounds are significantly hypoactive, abdominal pain on palpation of the left lower and right lower quadrant, abdomen does not reveal any masses. Skin: Warm, dry, and intact. Neurological: The patient is alert. Patient is disoriented. LABORATORY STUDIES: 1. CBC, white blood cell count 8.3, hemoglobin 11.7, hematocrit 37.1, platelets are 232,000. 2. CMP: Sodium was 143, potassium 4.0, chloride 109, CO2 of 25, anion gap of 13.0, BUN is 10, creatinine 0.7, GFR is greater than 60. Calcium 8.0, total bilirubin 0.3, AST is 23, ALT is 33, alkaline phosphatase is 119, albumin is 5.5. MEDICATION: 1. Bisacodyl 10 mg NC as needed. 2. Clozapine 1 tablet p.o. at bedtime. 3. Furosemide 40 mg 1 tablet p.o. daily. 4. Levothyroxine 75 mcg 1 tablet p.o. daily. 5. [place] 900 mg 1 tablet p.o. daily. 6. Lorazepam 0.5 mg 1 tablet p.o. 4 times daily. 7. Latuda 1 tablet p.o. daily at bedtime. 8. Reglan 10 mg IV push every 6 hours. 9. Multivitamin 1 tablet p.o. daily. 10.Ondansetron 4 mg IV push every 8 hours as needed. 11.Coumadin 7.5 mg on Mondays. 12.Coumadin 10 mg on Monday, Monday, Monday, , Monday, Monday. ASSESSMENT: 1. High-grade small bowel obstruction. 2. Abdominal pain. 3. Nausea and vomiting. 4. Bipolar. 5. Depression. 6. Schizophrenia. 7. Obsessive-compulsive disorder. 8. High cholesterol. 9. Asthma. 10.History of pulmonary embolism. 11.Gastroesophageal reflux disease. 12.Constipation. PLAN: The patient will be on acute cares for now. The patient will have an NG placed to decompress the stomach. The patient will remain n.p.o. Continue with Reglan every 6 hours. Continue with Zofran every 8 hours as needed for nausea. The patient will continue on IV fluids for hydration. I will stop the Rocephin as I do not see a urinary tract infection and no other indicator for antibiotics. I will continue assisted medications the same without any changes. We will recheck laboratory work tomorrow morning. The patient is a full code 1. The patient will be transferred to a higher level of care should the need arise. This case was discussed with Dr. Alejandro Avila, general surgeon, [facility]. If the patient does not show improvement over the next day or so, she will be transferred to [place]. Note: This patient was seen and examined by me as an [facility] provider. TB: 06/22/2019 12:29:19 MODL: 06/22/2019 13:15:18 /[id number]
[2019-06-22] MEDS ORDERED: cefTRIAXone 1 GM Vial IVPUSH SCH (19:00)
[2019-06-22] MEDS: Benzocaine/Cetylpyridinium/Menthol Lozenge MUCMEM PRN (19:49)
[2019-06-22] MEDS: CLOZAPINE 100 MG PO SCH (19:51)
[2019-06-22] MEDS: CLOZAPINE 200 MG PO SCH (19:51)
[2019-06-22] MEDS: LURASIDONE 80 MG PO SCH (19:52)
[2019-06-22] MEDS: LURASIDONE 40 MG PO SCH (19:53)
[2019-06-22] MEDS ORDERED: Warfarin 5 MG Tab PO SCH (20:00)
[2019-06-22] MEDS ORDERED: CLOZAPINE PO SCH (22:00)
[2019-06-23] MEDS: Metoclopramide 10 MG/2 ML SDV IVPUSH SCH ×4 (01:56→18:04)
[2019-06-23] MEDS: Sodium Chloride 0.9% 1,000 ML IV SCH ×2 (03:13→09:15)
[2019-06-23] MEDS: Levothyroxine 75 MCG Tab PO SCH (06:51)
[2019-06-23] MEDS: Multivitamins with Iron/Calcium/Folic Acid/Minerals Tab PO SCH (07:53)
[2019-06-23] MEDS: Furosemide 40 MG Tab PO SCH (07:53)
[2019-06-23] MEDS: LORazepam 0.5 MG Tab PO SCH ×4 (07:53→19:36)
[2019-06-23 08:02] LABS: CHLORIDE,CL 113 mmol/L (98-107); SODIUM,NA 146 mmol/L (136-145)
[2019-06-23 08:03] LABS: ANION GAP 11.6 mmol/L (10-20)
[2019-06-23] MEDS: Acetaminophen 325 MG Tab PO PRN ×2 (08:04→16:42)
[2019-06-23] MEDS: Benzocaine/Cetylpyridinium/Menthol Lozenge MUCMEM PRN (08:05)
[2019-06-23] MEDS: Lithium Carbonate 450 MG Tab.ER PO SCH (08:05)
[2019-06-23] MEDS: Lactated Ringers 1,000 ML IV SCH ×2 (09:44→22:25)
[2019-06-23] MEDS: CLOZAPINE 100 MG PO SCH (19:37)
[2019-06-23] MEDS: CLOZAPINE 200 MG PO SCH (19:38)
[2019-06-23] MEDS: LURASIDONE 40 MG PO SCH (19:41)
[2019-06-23] MEDS: LURASIDONE 80 MG PO SCH (19:42)
--- NOTE | 2019-06-23 23:14 | PN ---
Progress Note for KEITH ALVARADO Date: 06/23/2019 Room #: VM.201 CHIEF COMPLAINT: 1. Abdominal pain. 2. Nausea and vomiting. SUBJECTIVE: The patient offers no specific complaints this morning. She continues to have an NG tube in place. The patient is asking to eat. The patient does not complain of any abdominal pain. The patient has not needed any medications for nausea or vomiting. The patient is incontinent of urine. The patient has not had a bowel movement since 06/21/2019. PHYSICAL EXAMINATION: General Presentation: The patient is alert. The patient is cooperative. Respiratory: Lungs are clear to auscultation. Cardiac: Regular rate and rhythm. No murmur. Abdomen: Soft, nontender. Bowel sounds active in the left upper, left lower, and right lower quadrants. Bowel sounds are absent in the right upper quadrant. Skin: Warm, dry, and intact. Neurological: The patient is alert. LABORATORY STUDIES: 1. CBC: White blood cell count 6.9, hemoglobin 11.6, hematocrit 37.5, platelets are 210,000. 2. Coagulation Studies: INR 3.4. 3. BMP: Sodium is 146, potassium 3.6, chloride 113, CO2 is 25, anion gap is 11.6, BUN is 6, creatinine 0.7, GFR is greater than 60, glucose 101, calcium 8.1. MEDICATIONS: Same. ASSESSMENT: 1. High-grade small bowel obstruction. 2. Abdominal pain. 3. Nausea and vomiting. 4. Bipolar disorder. 5. Depression. 6. Schizophrenia. 7. Obsessive-compulsive disorder. 8. High cholesterol. 9. Asthma. 10.History of pulmonary embolism. 11.Gastroesophageal reflux disease. 12.Constipation. PLAN: We will continue the patient on acute cares for now. Continue with the NG. We will increase the patient's diet to clear liquids later on today. We will change IV fluids to lactated Ringer's as the patient's sodium is starting to go up. Continue with Reglan every 6 hours as well as Zofran every 8 hours as needed for nausea. The patient to continue with full code 1. Continue all other medications the same. Note: This patient was seen and examined by me as an [facility] provider. TB: 06/23/2019 10:01:31 MODL: 06/23/2019 23:05:17 /[id number]
[2019-06-24] MEDS ORDERED: Metoclopramide 10 MG/2 ML SDV ONE (01:03)
[2019-06-24] MEDS: Metoclopramide 10 MG/2 ML SDV IVPUSH SCH ×2 (01:10→06:16)
[2019-06-24] MEDS: Acetaminophen 325 MG Tab PO PRN ×2 (05:03→09:36)
[2019-06-24] MEDS: Levothyroxine 75 MCG Tab PO SCH (06:20)
[2019-06-24 07:29] LABS: ANION GAP 11.3 mmol/L (10-20); CHLORIDE,CL 109 mmol/L (98-107); SODIUM,NA 145 mmol/L (136-145)
[2019-06-24] MEDS: Lithium Carbonate 450 MG Tab.ER PO SCH (09:17)
[2019-06-24] MEDS: LORazepam 0.5 MG Tab PO SCH (09:17)
[2019-06-24] MEDS: Multivitamins with Iron/Calcium/Folic Acid/Minerals Tab PO SCH (09:17)
[2019-06-24] MEDS: Furosemide 40 MG Tab PO SCH (09:17)
--- NOTE | 2019-06-24 09:28 | DISCH ---
DISPOSITION: The patient will be transferred to [facility]. CONSULTATION: Alejandro Avila MD, General Surgery, [facility]. ADMITTING DIAGNOSES: 1. High-grade small bowel obstruction. 2. Abdominal pain. 3. Nausea and vomiting. DISCHARGE DIAGNOSES: 1. High-grade small bowel obstruction. 2. Abdominal pain. 3. Nausea and vomiting. HISTORY OF PRESENT ILLNESS: The patient was admitted to the acute care floor at [facility] in [place] on 06/21/2019 for the above-mentioned diagnoses. The patient had a CAT scan, which showed a high-grade small bowel obstruction. The patient's last bowel movement was last Monday morning. The patient continues to have abdominal pain. The patient has had an NG, and over the past 48 hours without relief of her symptoms. The patient has been getting scheduled Reglan 10 mg IV every 6 hours. The patient has continued on IV fluids. The patient has continued to have some nausea. The patient was originally thought to have a UTI and was started on Rocephin, however, this was stopped as her urine did not show any acute infection. The patient has been n.p.o. since admission. The patient is not passing any flatus. DISCHARGE LABORATORY WORK: CBC: White blood cell count 6.4, hemoglobin 12.2, hematocrit 38.8, platelets are 224,000. Coagulation study: INR is 3.4. BMP: Sodium 145, potassium 3.3, chloride 109, CO2 is 28, anion gap of 11.3, BUN is 4, creatinine 0.8, GFR is greater than 60, glucose 144, calcium is 8.4. DISCHARGE IMAGING STUDIES: None. PLAN: The patient will be transferred to [facility]. The accepting provider is Dr. Satinder Antunez, hospitalist. The patient was signed out to Dr. Antunez without any concerns. The patient will be transferred to [facility] as she is still a full code. The patient agrees with transfer and wishes to proceed. Patient was discharged in stable condition. TB: 06/24/2019 08:25:38 MODL: 06/24/2019 09:17:08 /[id number]
[2019-06-24] MEDS ORDERED: Warfarin 5 MG Tab PO SCH (21:59)
== END 2019-06-24 10:00 | disposition short-term general hospital (02) | DRG 390 ==
LOC: VM.ED 18:33 → VM.MS 21:30
PROVIDERS: ADMIT Nurse Practitioner Family; ATTEND Nurse Practitioner Family
PROC: 0D9670Z Drainage of Stomach with Drainage Device, Via Natural or Artificial Opening (ICD-10-PCS; principal; 2019-06-21)
DX: K56.609 Unspecified intestinal obstruction, unspecified as to partial versus complete obstruction (principal); N39.0 Urinary tract infection, site not specified; K56.600 Partial intestinal obstruction, unspecified as to cause; E78.00 Pure hypercholesterolemia, unspecified; J45.909 Unspecified asthma, uncomplicated; K59.09 Other constipation; F41.9 Anxiety disorder, unspecified; F31.9 Bipolar disorder, unspecified; F32.9 Major depressive disorder, single episode, unspecified; F20.9 Schizophrenia, unspecified; F60.9 Personality disorder, unspecified; F34.1 Dysthymic disorder; F42.9 Obsessive-compulsive disorder, unspecified; Z91.040 Latex allergy status; Z88.0 Allergy status to penicillin; Z88.8 Allergy status to other drugs, medicaments and biological substances; Z91.018 Allergy to other foods; K59.00 Constipation, unspecified; K21.9 Gastro-esophageal reflux disease without esophagitis; Z79.899 Other long term (current) drug therapy; Z79.890 Hormone replacement therapy; Z79.01 Long term (current) use of anticoagulants; Z86.711 Personal history of pulmonary embolism
CPT/HCPCS: 36415; 74177; 80048; 80053; 81001; 82150; 83605; 83690; 83735; 84100; 85025; 85610; 86140; 87040; 87086; 87088; 87186; 96361; 96374; 96375; 96376; 99284-GF; 99285-25; A9270-GY; J0696; J2765; J7030; J7120; Q9967

== ENCOUNTER 2022-05-18 10:20 | Emergency (ER) | payer MEDICARE, MEDICAID ==
[2022-05-18 11:36] LABS: CHLORIDE,CL 104 mmol/L (98-107); SODIUM,NA 141 mmol/L (136-145)
[2022-05-18 11:39] LABS: ANION GAP 14.6 mmol/L (5-15); ESTIMATED GFR 75 mL/min (>=60)
[2022-05-18 11:50] LABS: CORONAVIRUS COVID-19 NAA NEGATIVE (NEGATIVE); RESPIRATORY SYNCYTIAL VIR NAA NEGATIVE (NEGATIVE)
[2022-05-18] MEDS: Lactated Ringers 500 ML IV SCH (12:08)
[2022-05-18] MEDS: Cefepime 2 GM in Sodium Chloride 0.9% 100 ML IV SCH (12:32)
[2022-05-18] MEDS: Lactated Ringers 1,000 ML IV SCH (15:03)
== END 2022-05-18 15:50 | disposition short-term general hospital (02) ==
LOC: VM.ED 10:20
DX: A41.9 Sepsis, unspecified organism (principal); N30.00 Acute cystitis without hematuria; E78.00 Pure hypercholesterolemia, unspecified; K21.9 Gastro-esophageal reflux disease without esophagitis; Z91.013 Allergy to seafood; Z88.8 Allergy status to other drugs, medicaments and biological substances; Z91.040 Latex allergy status; Z88.0 Allergy status to penicillin; Z79.01 Long term (current) use of anticoagulants; Z79.899 Other long term (current) drug therapy; Z20.822 Contact with and (suspected) exposure to COVID-19
CPT/HCPCS: 0241U; 36415; 71045; 80053; 81001; 83605; 84484; 85025; 85610; 87040; 87077; 87086; 87088; 87186; 93005; 96361; 96365; 99284; 99285-25; J0692; J7050; J7120

== ENCOUNTER 2023-09-01 17:11 | Emergency (ER) | payer MEDICARE, MEDICAID ==
[2023-09-01] MEDS ORDERED: Sodium Chloride 0.9% 10 ML Syringe FLUSH PRN (17:40)
[2023-09-01] MEDS ORDERED: Sodium Chloride 0.9% 500 ML IV SCH (17:45)
[2023-09-01] MEDS: Sodium Chloride 0.9% 500 ML IV ONE (17:50)
[2023-09-01 17:55] LABS: BASOPHILS ABSOLUTE AUTO 0.1 x10^3/uL (0.0-0.2); BASOPHILS PERCENT AUTO 0.5 % (0.2-1.2); EOSINOPHILS ABSOLUTE AUTO 0.3 x10^3/uL (0.0-0.5); EOSINOPHILS PERCENT AUTO 2.3 % (0.0-4.0); HEMATOCRIT 40.3 % (33.0-47.0); HEMOGLOBIN 13.1 g/dL (12.0-16.0); IMMATURE GRAN ABSOLUTE AUTO 0.03 x10^3/uL (0.00-0.07); LYMPHOCYTES ABSOLUTE AUTO 1.8 x10^3/uL (1.0-4.8); LYMPHOCYTES PERCENT AUTO 16.3 % (25.0-50.0); MEAN CORPUSCULAR HGB CONC 32.5 g/dL (32.0-36.0); MEAN CORPUSCULAR VOLUME 83.1 fL (78.0-93.0); MONOCYTES ABSOLUTE AUTO 0.9 x10^3/uL (0.0-0.8); MONOCYTES PERCENT AUTO 8.3 % (2.0-11.0); NEUTROPHILS ABSOLUTE AUTO 7.9 x10^3/uL (1.8-7.7); NEUTROPHILS PERCENT AUTO 72.3 % (50.0-80.0); PLATELET COUNT,PLT 380 x10^3/uL (130-400); RED BLOOD CELL COUNT 4.85 x10^6/uL (4.00-5.50); WHITE BLOOD CELL COUNT,WBC 10.9 x10^3/uL (4.0-10.0)
[2023-09-01 18:26] LABS: A/G RATIO 0.87; ALBUMIN 3.4 g/dL (3.4-5.0); ANION GAP 16.9 mmol/L (5-15); BILIRUBIN TOTAL 0.1 mg/dL (0.2-1.0); CALCIUM 9.5 mg/dL (8.5-10.1); CREATININE 0.8 mg/dL (0.55-1.02); EST CRCL DRUG DOSING (CG) 73.63 mL/min; POTASSIUM,K 3.9 mmol/L (3.5-5.1); PROTEIN TOTAL,TP 7.3 g/dL (6.4-8.2)
== END 2023-09-01 19:10 | disposition home or self-care (01) ==
LOC: VM.ED 17:11
DX: R14.0 Abdominal distension (gaseous) (principal); Z87.19 Personal history of other diseases of the digestive system; E78.00 Pure hypercholesterolemia, unspecified; K21.9 Gastro-esophageal reflux disease without esophagitis; Z88.8 Allergy status to other drugs, medicaments and biological substances; Z91.018 Allergy to other foods; Z91.013 Allergy to seafood; Z91.040 Latex allergy status; Z88.5 Allergy status to narcotic agent; Z88.0 Allergy status to penicillin; Z79.01 Long term (current) use of anticoagulants; Z79.899 Other long term (current) drug therapy; Z79.890 Hormone replacement therapy; Z79.84 Long term (current) use of oral hypoglycemic drugs; Z86.16 Personal history of COVID-19
CPT/HCPCS: 80053; 83605; 83690; 85025; 96360; 96361; 99283-25; J7030